=== PATIENT | male | born 1980 | race Two or more races ===

== ENCOUNTER 2024-03-08 14:29 | Emergency (ER) | payer BC, MEDICAID ==
[~2024-03-08] VITALS: Ht 172.7 cm; Wt 66.0 kg
[2024-03-08 14:44] VITALS: O2SAT 99
[2024-03-08] MEDS: SUMATRIPTAN SUCCINATE 25MG TABLET PO ONE (15:43)
[2024-03-08] MEDS: ACETAMINOPHEN 325MG TABLET PO ONE (15:50)
[2024-03-08] MEDS ORDERED: IBUP-2028 MT (17:02)
[2024-03-08] MEDS ORDERED: TOPUD PO (17:02)
[2024-03-08] MEDS: IBUPROFEN 400MG TABLET PO ONE (17:12)
[2024-03-08 17:16] VITALS: BP 166/100; PULSE 80; RESP 18; TEMP 98.5
== END 2024-03-08 17:23 | disposition home or self-care (01) ==
LOC: ER 14:29
DX: R51.9 Headache, unspecified (principal); F17.200 Nicotine dependence, unspecified, uncomplicated
CPT/HCPCS: 36415; 80307; 99284